=== PATIENT | male | born 1950 | race Two or more races ===

== ENCOUNTER 2024-11-01 20:37 | Emergency (ER) | payer MEDICARE, OTHER, SELFPAY ==
[2024-11-01 20:39] VITALS: BMI 33.9
[2024-11-01 20:51] VITALS: BP 143/76; PULSE 75; RESP 17; O2SAT 95
--- NOTE | 2024-11-01 20:58 | XR_ITS ---
Examination: CT brain head without contrast. 2-D sagittal coronal reconstructions Date and time of exam:November 01, 2024 0921 hours Comparison February 09, 2024 INDICATIONS: Ground-level fall today with injury to the head, loss of consciousness, patient is anticoagulated CTDI: vol (mGy):56.5 DLP: (mGycm):1144 Technique: Multiple CT axial sections of the brain have been obtained, 5 mm slice thickness. Contrast has not been administered. 2-D sagittal, coronal reconstructions have been obtained Low dose protocols were performed. One or more of the following dose reduction techniques were used; automated exposure control, adjustment of the mA and/or KV according to patient size, use of iterative reconstruction technique. Findings: No significant ventricular enlargement. Unchanged encephalomalacia in the right posterior parietal lobe Intra-axial or extra-axial hemorrhage density is not seen. No mass effect or midline shift Basal cisterns are not remarkable. Fourth ventricle is midline. Cranial vault intact. Impression: Negative for acute hemorrhage, mass effect or midline shift
--- NOTE | 2024-11-01 20:58 | XR_ITS ---
Examination: CT cervical spine without contrast 2-D sagittal reconstructions 2-D coronal reconstructions 3-D reconstructions. Exam date and time:November 01, 2024, 2122 hours INDICATIONS: Ground-level fall today with injury to the neck, neck pain CTDI:vol (mGy) 19.7 DLP: (mGycm) 490 Technique: Multiple 2 mm axial sections of the cervical spine have been obtained. The coronal and sagittal reconstructions have been obtained. 3-D reconstructions have been obtained. Low dose protocols were performed. One or more of the following dose reduction techniques were used; automated exposure control, adjustment of the mA and/or KV according to patient size, use of iterative reconstruction technique. Findings: Axial sections demonstrate intact base of the skull. C1 exhibit satisfactory relationship to the odontoid. No acute cervical vertebral body fracture seen. Alignment posterior spinous processes satisfactory. Impression: No acute cervical fracture.
--- NOTE | 2024-11-01 20:58 | PD.EDHEAD ---
ED Head Injury RME/HPI General Chief complaint: Head Injury Stated complaint: GLF HEAD LAC + THINNER - LOC Time Seen by Provider: 11/01/24 20:58 Arrival date/time: 11/01/24 20:37 RME / HPI RME / HPI Narrative: 74-year-old male patient with significant history of diabetes mellitus hypertension, currently taking aspirin and Plavix, came in for evaluation regarding laceration to the scalp, occipital area after patient sustained a ground-level fall. Incident happened few minutes prior to ER visit patient tripped and fell. Patient denies any neck pain. Denies any other complaints except for headache. No LOC no nausea no vomiting. Patient is ambulatory. Related Data Home Medications ?Medication ?Instructions ?Recorded ?Confirmed ascorbic acid (vitamin C) 500 mg 500 mg PO QDAY 05/26/20 05/27/20 tablet (Vitamin C) insulin glargine 100 unit/mL 35 unit subcut QDAY 05/26/20 05/27/20 subcutaneous solution (Lantus U-100 Insulin) lisinopril 5 mg tablet 5 mg PO DAILY 05/26/20 05/27/20 metformin 1,000 mg tablet 1,000 mg PO BID 05/26/20 05/27/20 vit C,E,copper,[id number] 250 1 cap PO QDAY 05/26/20 05/27/20 mg-lutein 5 mg-zeaxanthin 1 mg capsule (Ocuvite Adult 50 Plus) Previous Rx's ?Medication ?Instructions ?Recorded ibuprofen 800 mg tablet 800 mg PO TID PRN pain #30 tabs 07/02/23 lidocaine 5 % topical patch 1 patch topical QDAY #15 ea 07/02/23 Allergies Allergy/AdvReac Type Severity Reaction Status Date / Time No Known Allergies Allergy Verified 02/09/24 09:20 Review of Systems Review of Systems Narrative Review of Systems: Review of system reviewed and within normal limits except mentioned in HPI ED Exam Narrative Physical exam: VITAL SIGNS: Reviewed. GENERAL APPEARAN+1.5 cm scalp laceration occipital area no bleeding noted ENT: PERRL, pink conjunctivitis, eyelid no trauma, Mucous membrane moist. NECK: Supple, nontender, no nuchal rigidity. CHEST: No tenderness, no crepitus, no paradoxical movement, no retractions. LUNGS: Clear, well ventilated, symmetric, no rales, no wheezing, no ronchi, no stridor, good breath sounds bilaterally. HEART: Regular rate, regular rhythm, no murmur, no gallops. ABDOMEN: Soft, positive bowel sounds, nondistended, no guarding, nontender, no rebound, no masses, RECTAL: Deferred. GENITAL: Deferred. NEUROLOGICAL: Gross motor function intact sensory function intact, Appropriate for age. MUSCULOSKELETAL: low back nontender, full range of motion. EXTREMITIES: Nontender, full range of motion. SKIN: Color pink, dry, no rash, no lacerations, no abrasions, no contusions. LYMPHATICS: Deferred. Course Quality Measures none Orders Category Date Time Status CT cervical spine wo con Stat Exams 11/01/24 20:[address] head/brain wo con Stat Exams 11/01/24 20:58 Completed Vital Signs Vital signs: Vital Signs Pulse Rate 75 11/01/24 20:51 Respiratory Rate 17 11/01/24 20:51 Blood Pressure 143/76 H 11/01/24 20:51 Pulse Oximetry (%) 95 11/01/24 20:51 Oxygen Delivery Method Room Air 11/01/24 20:51 Head Injury MDM Narrative MDM Narrative:: 74-year-old male patient with significant history of diabetes mellitus hypertension, currently taking aspirin and Plavix, came in for evaluation regarding laceration to the scalp, occipital area after patient sustained a ground-level fall. Incident happened few minutes prior to ER visit patient tripped and fell. Patient denies any neck pain. Denies any other complaints except for headache. No LOC no nausea no vomiting. Patient is ambulatory. CT scan of the head came back unremarkable. CT scan of the neck came back unremarkable. Results discussed with the patient. Wound cleansed with Betadine, and clifford applied x 3 dressing applied. Patient tolerated procedure well. Patient data External records reviewed:: None Clinical information provided by:: patient Social determinants that could affect healthcare access:: none Patient has the following chronic illnesses:: CVA diabetes, hypertension How is presenting disease/condition affected by chronic disease/condition?: exacerbated by Evaluation data The following diagnostics were reviewed and interpreted by me:: radiology exam(s) Lab and/or radiology exams considered but not ordered:: None Interpretation Summary: See results MDM Medications / Prescriptions Medications or Prescriptions considered but not ordered:: None Medication administrations:: None Consultations Consultation(s) initiated? (list below): No Diagnosis Differential diagnosis head injury: closed head injury and subarachnoid hematoma Most likely diagnosis given after review of the tests above:: Scalp laceration, status post fall Admission Indicated Admission indicated?: not indicated Admission Request Was there a request for admission?: No Disposition Plan Disposition Plan: Discharge Discharge Attestation Discharge Attestation: The patient and all family members were given an opportunity to ask questions and understood the discharge instructions. Discharge instructions specifically effects, indications for sooner follow up or return to the emergency department, and the expected course of current diagnosis. Patient condition: Stable Discharge Plan Plan Patient Disposition: HOME (Self Care) Discharge Disposition comment: Stable Prescriptions/Referrals Prescriptions/Med Rec: No Action Lantus U-100 Insulin 100 unit/mL Solution 35 unit SUBCUT QDAY ascorbic acid (vitamin C) [Vitamin C] 500 mg Tablet 500 mg PO QDAY metformin 1,000 mg Tablet 1,000 mg PO BID lisinopril 5 mg Tablet 5 mg PO DAILY Rx Instructions: PT TAKES HALF 10 MG PO QD Ocuvite Adult 50 Plus 250-5-1 mg Capsule 1 cap PO QDAY ibuprofen 800 mg tablet 800 mg PO TID PRN (Reason: pain) Qty: 30 0RF lidocaine 5 % adhesive patch,medicated 1 patch topical QDAY Qty: 15 0RF Rx Instructions: leave on most painful area for up to 12 hrs Referrals: Jasmin Sandoval MD [Primary Care Provider] - In 1 week Problem List Clinical Impression: Laceration of scalp, Fall Patient/Caregiver Discharge Instructions Discharge Activity: activity as tolerated Education Materials: Preventing Falls: Staying Active Additional Instructions: Thank you for the opportunity for serving you today. You are stable for discharged . You are advised to: Follow-up with your PCP in 1 to 2 days Return to ED for worsening of symptoms Dehydration with this morning. For removal of clifford in 7 days Print Language: Yakut Stand Alone Forms: Kathrine Award Info., Patient Portal Info Letter PA/ERIC Supervising Physician STAN/ERIC Supervising Physician: Dr Loza
[2024-11-01 22:07] VITALS: BP 116/63; PULSE 74; RESP 18; TEMP 36.9; O2SAT 96
== END 2024-11-01 22:38 | disposition home or self-care (01) ==
PROVIDERS: Emergency Provider Emergency Medicine; PCP Family Medicine
DX: S01.01XA Laceration without foreign body of scalp, initial encounter (principal); S19.9XXA Unspecified injury of neck, initial encounter; W18.30XA Fall on same level, unspecified, initial encounter
CPT/HCPCS: 70450; 72125; 99283